=== PATIENT | female | born 1995 | race Caucasian/White ===

== ENCOUNTER 2017-07-22 18:18 | Inpatient (IN) | payer OTHER ==
[~2017-07-22] VITALS: Ht 147.3 cm; Wt 46.0 kg
[2017-07-22] MEDS ORDERED: FLUD0.1T PO (18:49)
[2017-07-22] MEDS ORDERED: PRED1TAB PO (18:49)
[2017-07-22] MEDS ORDERED: DEXAMETHASONE 4 MG/ML, 5ML ONE (18:51)
[2017-07-22] MEDS ORDERED: ONDANSETRON 2MG/ML, 2ML ONE (18:51)
[2017-07-22] MEDS ORDERED: ONDANSETRON 2MG/ML, 2ML IVPush ONE (19:00)
[2017-07-22] MEDS ORDERED: SODIUM CHLORIDE FLUSH 10ML SYR IVF ONE (19:00)
[2017-07-22] MEDS ORDERED: PLEASE ENTER ALLERGIES MC SCH (19:00)
[2017-07-22] MEDS ORDERED: DEXAMETHASONE 4 MG/ML, 1ML IVPush ONE (19:00)
[2017-07-22] MEDS ORDERED: SODIUM CHLORIDE 0.9% 1,000ML IVBOLUS ONE ×2 (19:00→19:30)
[2017-07-22 19:11] LABS: BASOPHILS # (AUTO) 0.02 x10^3/uL (0-0.1); BASOPHILS % (AUTO) 0 % (0-1); EOSINOPHILS % (AUTO) 0 % (1-7); LYMPHOCYTES # (AUTO) 0.93 x10^3/uL (1-3.4); LYMPHOCYTES % (AUTO) 9 % (22-44); MD NO; MEAN CORPUSCULAR HEMOGLOBIN 29.8 pg (27.0-34.8); MEAN CORPUSCULAR HGB CONC 33.9 g/dL (32.4-35.8); MEAN CORPUSCULAR VOLUME 87.9 fL (80-100); MEAN PLATELET VOLUME 9.8 fL (7.4-10.4); MONOCYTES % (AUTO) 13 % (2-9); NEUTROPHILS # (AUTO) 8.11 x10^3/uL (1.8-6.8); NEUTROPHILS % (AUTO) 78 % (42-75); PLATELET COUNT 216 x10^3/uL (130-400); RED BLOOD COUNT 5.77 x10^6/uL (3.82-5.3); RED CELL DISTRIBUTION WIDTH 12.2 % (9.6-15.2)
[2017-07-22 19:14] LABS: RAPID INFLUENZA A POSITIVE (Negative); RAPID INFLUENZA B Negative (Negative)
[2017-07-22 19:20] LABS: ALANINE AMINOTRANSFERASE 31 U/L (12-78); ALBUMIN 4.1 g/dL (3.4-5.0); ANION GAP 18 mmol/L (5-15); CALCIUM 8.3 mg/dL (8.5-10.1); CHLORIDE 101 mmol/L (98-107)
[2017-07-22 19:24] LABS: ALKALINE PHOSPHATASE 78 U/L (45-117); BILIRUBIN,TOTAL 0.7 mg/dL (0.2-1.0); TOTAL PROTEIN 8.7 g/dL (6.4-8.2)
[2017-07-22] MEDS ORDERED: ACETAMINOPHEN 325 MG TABLET PO ONE (19:30)
[2017-07-22] MEDS ORDERED: OSELTAMIVIR 75 MG CAPSULE PO ONE (19:30)
[2017-07-22] MEDS ORDERED: ACETAMINOPHEN 325 MG TABLET ONE (19:45)
[2017-07-22] MEDS ORDERED: maalox/diphenh/lido/sucralfate 5 ML PO PRN (20:00)
[2017-07-22] MEDS ORDERED: ACETAMINOPHEN 325 MG TABLET PO PRN (21:00)
[2017-07-22 21:14] VITALS: BP 107/62
[2017-07-22] MEDS: D5%-0.9% NACL 1,000 ML IV SCH (21:37)
[2017-07-22] MEDS: ONDANSETRON 2MG/ML, 2ML IVPush PRN (21:37)
[2017-07-22] MEDS: HYDROCORTISONE 100 MG INJ. IVPush SCH (21:37)
[2017-07-22] MEDS: morphine SULFATE 10 MG/ML, 1ML IVPush PRN (22:10)
[2017-07-22 22:34] LABS: MICROSCOPIC INDICATED
[2017-07-22 22:51] LABS: CULTURE INDICATED? NO
[2017-07-23 02:05] VITALS: BP 100/63
[2017-07-23] MEDS: HYDROCORTISONE 100 MG INJ. IVPush SCH (04:36)
[2017-07-23] MEDS: ONDANSETRON 2MG/ML, 2ML IVPush PRN (04:37)
[2017-07-23] MEDS: morphine SULFATE 10 MG/ML, 1ML IVPush PRN (04:45)
[2017-07-23] MEDS: D5%-0.9% NACL 1,000 ML IV SCH ×2 (05:18→10:09)
[2017-07-23 05:31] LABS: BASOPHILS # (AUTO) 0.02 x10^3/uL (0-0.1); BASOPHILS % (AUTO) 0 % (0-1); EOSINOPHILS % (AUTO) 0 % (1-7); LYMPHOCYTES # (AUTO) 0.75 x10^3/uL (1-3.4); LYMPHOCYTES % (AUTO) 9 % (22-44); MD NO; MEAN CORPUSCULAR HEMOGLOBIN 30.2 pg (27.0-34.8); MEAN CORPUSCULAR HGB CONC 34.3 g/dL (32.4-35.8); MEAN CORPUSCULAR VOLUME 87.8 fL (80-100); MEAN PLATELET VOLUME 9.4 fL (7.4-10.4); MONOCYTES # (AUTO) 0.86 x10^3/uL (0.2-0.8); MONOCYTES % (AUTO) 10 % (2-9); NEUTROPHILS % (AUTO) 81 % (42-75); PLATELET COUNT 191 x10^3/uL (130-400); RED BLOOD COUNT 4.35 x10^6/uL (3.82-5.3); RED CELL DISTRIBUTION WIDTH 12.6 % (9.6-15.2)
[2017-07-23 05:40] LABS: CHLORIDE 109 mmol/L (98-107)
[2017-07-23 05:50] LABS: ALANINE AMINOTRANSFERASE 23 U/L (12-78); ALBUMIN 2.9 g/dL (3.4-5.0); ALKALINE PHOSPHATASE 61 U/L (45-117); ANION GAP 8 mmol/L (5-15); BILIRUBIN,TOTAL 0.5 mg/dL (0.2-1.0); CALCIUM 7.6 mg/dL (8.5-10.1); CREATININE 0.94 mg/dL (0.55-1.02); TOTAL PROTEIN 6.4 g/dL (6.4-8.2)
[2017-07-23 07:40] VITALS: BP 100/65
[2017-07-23] MEDS ORDERED: FLUDROCORTISONE 0.1 MG TABLET PO SCH (09:00)
[2017-07-23] MEDS ORDERED: OSELTAMIVIR 30 MG CAPSULE PO SCH (09:00)
[2017-07-23] MEDS ORDERED: SODIUM PHOSPHATE 10 MMOL in SODIUM CHLORIDE 0.9% 500 ML IV ONE (12:00)
[2017-07-23] MEDS: NS + 20MEQ KCL 1,000 ML IV SCH (12:30)
[2017-07-23 14:30] VITALS: BP 110/68
[2017-07-23] MEDS: FLUDROCORTISONE 0.1 MG TABLET PO SCH (20:32)
[2017-07-23] MEDS: OSELTAMIVIR 75 MG CAPSULE PO SCH (20:32)
[2017-07-23 21:03] VITALS: BP 114/76
[2017-07-24 03:35] VITALS: BP 101/51
[2017-07-24 05:28] LABS: ANION GAP 6 mmol/L (5-15); CALCIUM 7.7 mg/dL (8.5-10.1); CHLORIDE 114 mmol/L (98-107)
[2017-07-24 05:29] LABS: CREATININE 0.62 mg/dL (0.55-1.02)
[2017-07-24 07:39] VITALS: BP 101/65
[2017-07-24] MEDS: NS + 20MEQ KCL 1,000 ML IV SCH (07:59)
[2017-07-24] MEDS: OSELTAMIVIR 75 MG CAPSULE PO SCH (07:59)
[2017-07-24] MEDS: FLUDROCORTISONE 0.1 MG TABLET PO SCH (07:59)
[2017-07-24] MEDS ORDERED: OSEL75CA PO (08:56)
== END 2017-07-24 11:00 | disposition home or self-care (01) | DRG 194 ==
LOC: ED 19:00 → EDIP 19:45 → 4WST 20:38
PROVIDERS: ADMIT Hospitalist; ATTEND Hospitalist
DX: J10.1 Influenza due to other identified influenza virus with other respiratory manifestations (principal); R57.9 Shock, unspecified; N17.9 Acute kidney failure, unspecified; R65.10 Systemic inflammatory response syndrome (SIRS) of non-infectious origin without acute organ dysfunction; E25.0 Congenital adrenogenital disorders associated with enzyme deficiency; E87.2 Acidosis; E86.0 Dehydration; E86.1 Hypovolemia; Q89.1 Congenital malformations of adrenal gland; R19.7 Diarrhea, unspecified
CPT/HCPCS: 36415; 71045; 80048; 80053; 81001; 83605; 83690; 83735; 84100; 84703; 85025; 87040; 87400; 93005; 96361; 96374; 96375; J1100; J2405; J3480; J7042; J7512; J1720; J2270; J7030; J7040